=== PATIENT | male | born 1960 | race African-American/Black ===

== ENCOUNTER 2020-05-04 15:09 | Emergency (ER) | payer OTHER ==
[~2020-05-04] VITALS: Ht 185.4 cm; Wt 83.9 kg
[2020-05-04 15:52] LABS: CALCIUM 8.7 mg/dL (8.5-10.1); POTASSIUM 3.5 mmol/L (3.5-5.1)
[2020-05-04] MEDS ORDERED: NORVASC 2.5 MG2.5 M1 PO (16:02)
[2020-05-04 16:03] VITALS: BP 178/89
--- NOTE | 2020-05-05 07:47 | EKG ---
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 : 1960 Requested By: Bryon Cortez Order Number: [id number] MD: Chinmay Alcazar Measurements Intervals [place] Rate: 63 P: 56 MI: 144 QRS: -21 QRSD: 106 T: 22 QT: 440 QTc: 451 Interpretive Statements Sinus rhythm Ventricular premature complex Borderline left axis deviation No previous ECG available for comparison Electronically Signed On 05-05-2020 7:46:54 [employer]NA[employer] by Chinmay Alcazar [email or web address] <ELECTRONICALLY SIGNED> By: Chinmay Alcazar MD, [facility] 05/05/20 0746 1535 1535 Chinmay Alcazar MD, FACC /EPI
== END 2020-05-04 16:03 | disposition home or self-care (01) ==
LOC: ER 15:09
PROVIDERS: Emergency Medicine
DX: I10 Essential (primary) hypertension (principal)

== ENCOUNTER 2020-06-22 21:16 | Emergency (ER) | payer OTHER ==
[~2020-06-22] VITALS: Ht 185.4 cm; Wt 81.2 kg
[~2020-06-22 21:16] MED LIST: NORVASC 2.5 MG2.5 M1 PO
[2020-06-22] MEDS ORDERED: CARVEDILOL12.5 MG PO (21:57)
[2020-06-22 21:58] LABS: ABSOLUTE NEUTROPHILS 3.2 thou/uL (1.4-8.2); BASOPHILS 0.4 % (0.0-2.0); HEMOGLOBIN 13.9 gm/dL (14.0-18.0); MCH 30.2 pg (26.0-34.0); MCHC 33.2 g/dL (28.0-37.0); MCV 91.1 fL (80.0-100.0); MONOCYTES 7.4 % (1.0-8.0); PLATELET COUNT 137 thou/uL (150-400); POLYS 57.2 % (36.0-66.0); RBC 4.61 mil/uL (4.50-6.00); RDW 12.7 % (10.5-14.5); WBC 5.5 thou/uL (4.0-11.0)
[2020-06-22] MEDS ORDERED: OLMESARTAN-HCT1 EAC1 PO (21:58)
[2020-06-22 22:00] LABS: ANION GAP 5 mmol/L (7-16); BUN 15 mg/dL (7-18); CALCIUM 8.7 mg/dL (8.5-10.1); CHLORIDE 102 mmol/L (98-107); CO2 32 mmol/L (21-32); GLUCOSE 128 mg/dL (74-106); POTASSIUM 3.5 mmol/L (3.5-5.1); SODIUM 139 mmol/L (136-145)
[2020-06-22 22:10] LABS: ALBUMIN 3.9 g/dL (3.4-5.0); SGOT 21 U/L (15-37); SGPT 43 U/L (30-65); TOTAL BILIRUBIN 0.5 mg/dL (0.2-1.0); TOTAL PROTEIN 7.3 g/dL (6.4-8.2); TROPONIN-I <0.06 ng/mL (<0.06)
[2020-06-22 23:28] LABS: URINE BILIRUBIN NEGATIVE (Negative); URINE BLOOD NEGATIVE (Negative); URINE CLARITY CLEAR; URINE COLOR YELLOW; URINE GLUCOSE-RANDOM* NEGATIVE (Negative); URINE KETONES NEGATIVE (Negative); URINE LEUKOCYTES-REFLEX NEGATIVE (Negative); URINE NITRITE-REFLEX NEGATIVE (Negative); URINE PROTEIN (DIPSTICK) NEGATIVE (Negative); URINE UROBILINOGEN 0.2 E.U./dl (0.2-1.0)
[2020-06-22 23:40] VITALS: BP 121/72
--- NOTE | 2020-06-23 07:21 | EKG ---
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 : 1960 Requested By: Avani Brian Order Number: [id number] MD: Gabriele Renee Measurements Intervals [place] Rate: 79 P: 65 MS: 133 QRS: -17 QRSD: 118 T: 34 QT: 403 QTc: 463 Interpretive Statements Sinus rhythm Nonspecific intraventricular conduction delay Baseline wander in lead(s) V5 Compared to ECG 05/04/2020 15:35:04 Intraventricular conduction delay now present Ventricular premature complex(es) no longer present Electronically Signed On 06-23-2020 7:21:18 CDT by Gabriele Renee [email or web address] <ELECTRONICALLY SIGNED> By: Gabriele Renee MD, [facility] 06/23/20720 37 37 Gabriele Renee MD, [facility] /EPI
--- NOTE | 2020-06-23 14:54 | EKG ---
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
== END 2020-06-22 23:50 | disposition home or self-care (01) ==
LOC: ER 21:16
PROVIDERS: Emergency Medicine
DX: D69.6 Thrombocytopenia, unspecified (principal); I10 Essential (primary) hypertension; Z79.899 Other long term (current) drug therapy